=== PATIENT | female | born 2000 | race Caucasian/White ===

== ENCOUNTER 2025-03-19 17:11 | Emergency (ER) | payer MEDICAID ==
[~2025-03-19] VITALS: Ht 165.1 cm; Wt 73.0 kg
[2025-03-19 17:28] VITALS: O2SAT 98
[2025-03-19] MEDS ORDERED: METH-653 MT (18:38)
[2025-03-19] MEDS ORDERED: IBUP-2029 MT (18:38)
[2025-03-19 19:53] VITALS: BP 129/65; PULSE 80; RESP 18; TEMP 36.9; O2SAT 100
== END 2025-03-19 19:59 | disposition home or self-care (01) ==
LOC: ER 17:11
DX: R51.9 Headache, unspecified (principal); V43.52XA Car driver injured in collision with other type car in traffic accident, initial encounter; Y93.89 Activity, other specified; Y92.410 Unspecified street and highway as the place of occurrence of the external cause; Y99.9 Unspecified external cause status
CPT/HCPCS: 99283